=== PATIENT | female | born 1960 | race Two or more races ===

== ENCOUNTER 2021-12-29 01:46 | Emergency (ER) | payer SELFPAY ==
[~2021-12-29] VITALS: Ht 157.5 cm; Wt 100.0 kg
[2021-12-29 02:45] LABS: BASOPHILS % (AUTO) 0.9 % (0.0-2.0); EOSINOPHILS % (AUTO) 2.3 % (1.0-6.0); HEMATOCRIT 39.2 % (36-46); HEMOGLOBIN 13.2 g/dL (12.0-16.0); LYMPHOCYTES # (AUTO) 2.3 K/uL (1.0-4.8); LYMPHOCYTES % (AUTO) 25.2 % (22.0-44.0); MEAN CORPUSCULAR HEMOGLOBIN 32.7 pg (26.0-34.0); MEAN CORPUSCULAR HGB CONC 33.6 G/dL (31.0-37.0); MEAN CORPUSCULAR VOLUME 97 fL (80-100); MONOCYTES % (AUTO) 10.9 % (2.0-9.0); NEUTROPHILS # (AUTO) 5.5 K/uL (1.8-7.7); NEUTROPHILS % (AUTO) 60.7 % (40.0-70.0); PLATELET COUNT (AUTO) 298 K/uL (150-450); RED BLOOD CELL COUNT(AUTO) 4.02 MIL/uL (4.00-5.20); RED CELL DISTRIBUTION WIDTH 13.4 % (11.5-14.5)
[2021-12-29 02:58] LABS: ANION GAP 2 mmol/L (8-16); CALCIUM, TOTAL 10.1 mg/dL (8.8-10.5); CARBON DIOXIDE 32 mmol/L (22-29); CHLORIDE 105 mmol/L (98-107); CREATININE 0.94 mg/dL (0.60-1.30); GLUCOSE,RANDOM 109 mg/dL (70-110); POTASSIUM 4.1 mmol/L (3.5-5.1); SODIUM SERUM 139 mmol/L (136-145); UREA NITROGEN, BLOOD 13 mg/dL (7-18)
[2021-12-29 03:03] LABS: GLOMERULAR FILTR. RATE CALC > 60 mL/min (>60)
[2021-12-29 03:04] LABS: ALANINE AMINOTRANSFERASE 18 U/L (12-78); ALKALINE PHOSPHATASE 68 U/L (46-116); ASPARTATE AMINOTRANSFERASE 20 U/L (15-37); BILIRUBIN,TOTAL 0.4 mg/dL (0.1-1.0)
[2021-12-29] MEDS ORDERED: ACETAMINOPHEN 500 MG TABLET PO ONE (03:15)
[2021-12-29] MEDS ORDERED: ONDANSETRON HCL 4 MG TABLET PO ONE (03:15)
[2021-12-29] MEDS ORDERED: MECLIZINE HCL 25 MG TABLET PO ONE (03:15)
[2021-12-29] MEDS ORDERED: ACET-66 PO (03:19)
[2021-12-29] MEDS ORDERED: MECL-134 PO (03:19)
[2021-12-29 06:00] VITALS: BP 117/68
== END 2021-12-29 06:41 | disposition home or self-care (01) ==
LOC: EMS 01:46
DX: R42 Dizziness and giddiness (principal); Z59.00 Homelessness unspecified
CPT/HCPCS: 99284; 80053; 84484; 85025; 36415; 93005; Q0162

== ENCOUNTER 2021-12-31 22:41 | Emergency (ER) | payer SELFPAY ==
[~2021-12-31 22:41] MED LIST: ACET-66 PO; MECL-134 PO
[2022-01-01 01:45] LABS: BASOPHILS % (AUTO) 0.8 % (0.0-2.0); EOSINOPHILS % (AUTO) 3.8 % (1.0-6.0); HEMATOCRIT 36.2 % (36-46); HEMOGLOBIN 12.1 g/dL (12.0-16.0); LYMPHOCYTES # (AUTO) 2.8 K/uL (1.0-4.8); MEAN CORPUSCULAR HEMOGLOBIN 32.3 pg (26.0-34.0); MEAN CORPUSCULAR HGB CONC 33.5 G/dL (31.0-37.0); MEAN CORPUSCULAR VOLUME 96 fL (80-100); MONOCYTES # (AUTO) 0.9 K/uL (0.1-1.0); MONOCYTES % (AUTO) 11.2 % (2.0-9.0); NEUTROPHILS # (AUTO) 4.1 K/uL (1.8-7.7); NEUTROPHILS % (AUTO) 50.2 % (40.0-70.0); PLATELET COUNT (AUTO) 276 K/uL (150-450); RED BLOOD CELL COUNT(AUTO) 3.76 MIL/uL (4.00-5.20); RED CELL DISTRIBUTION WIDTH 13.4 % (11.5-14.5)
[2022-01-01 01:52] LABS: ANION GAP 4 mmol/L (8-16); CALCIUM, TOTAL 9.3 mg/dL (8.8-10.5); CARBON DIOXIDE 30 mmol/L (22-29); CHLORIDE 107 mmol/L (98-107); CREATININE 0.87 mg/dL (0.60-1.30); GLUCOSE,RANDOM 97 mg/dL (70-110); POTASSIUM 4.1 mmol/L (3.5-5.1); SODIUM SERUM 141 mmol/L (136-145); UREA NITROGEN, BLOOD 11 mg/dL (7-18)
[2022-01-01 01:53] LABS: GLOMERULAR FILTR. RATE CALC > 60 mL/min (>60)
[2022-01-01 01:58] LABS: ALANINE AMINOTRANSFERASE 18 U/L (12-78); ALBUMIN 3.5 g/dL (3.4-5.0); ALKALINE PHOSPHATASE 59 U/L (46-116); ASPARTATE AMINOTRANSFERASE 18 U/L (15-37); BILIRUBIN,TOTAL 0.3 mg/dL (0.1-1.0); TOTAL PROTEIN, SERUM 6.5 g/dL (6.4-8.2)
[2022-01-01 04:30] VITALS: BP 139/75
== END 2022-01-01 05:08 | disposition home or self-care (01) ==
LOC: EMS 22:43
DX: R01.1 Cardiac murmur, unspecified (principal); Z59.00 Homelessness unspecified; Z88.0 Allergy status to penicillin
CPT/HCPCS: 71045; 80053; 85025; 99284; 36415-L1; 36415-TC

== ENCOUNTER 2022-01-05 23:23 | Emergency (ER) | payer SELFPAY ==
[~2022-01-05] VITALS: Ht 160 cm; Wt 90.5 kg
[2022-01-06] MEDS ORDERED: ACETAMINOPHEN 500 MG TABLET PO ONE (01:00)
[2022-01-06 03:50] VITALS: BP 122/70
== END 2022-01-06 03:13 | disposition home or self-care (01) ==
LOC: EMS 23:24
DX: M25.562 Pain in left knee (principal); M25.561 Pain in right knee; M79.672 Pain in left foot; M79.671 Pain in right foot; Z88.0 Allergy status to penicillin; Z59.00 Homelessness unspecified
CPT/HCPCS: 99283

== ENCOUNTER 2022-01-06 16:43 | Emergency (ER) | payer SELFPAY ==
[~2022-01-06] VITALS: Ht 157.5 cm; Wt 81.8 kg
[2022-01-06 16:50] VITALS: BP 131/65
== END 2022-01-06 17:49 | disposition home or self-care (01) ==
LOC: EMS 16:58
DX: M25.562 Pain in left knee (principal); M25.561 Pain in right knee; Z59.00 Homelessness unspecified; Z88.0 Allergy status to penicillin
CPT/HCPCS: 99281; Z7502